=== PATIENT | male | born 1945 | race Caucasian/White ===

== ENCOUNTER → 2016-10-17 | Outpatient (CLI) | payer MEDICARE ==
[~2016-10-17] MED LIST: ACCUPRIL10 MG PO; ACTOS45 MG PO; ASPIR 8181 MG PO; ASPIRIN EC81 MG PO; CATAPRES 0.1MG0.1 MG PO; COREG6.25 MG PO; ELAVIL 50 MG TA50 MG PO; FLOMAX 0.4 MG0.4 MG PO; GABAPENTIN400 MG PO; GLIPIZIDE XL10 MG PO; HYDRALAZINE HCL50 MG PO; HYDROCODON-ACE1 EAC2 PO; IMDUR ER TAB 3030 MG PO; IMDUR ER TAB 6060 MG PO; K-DUR TAB 10 M10 MEQ PO; LASIX40 MG PO; LIPITOR40 MG PO; LOPRESSOR 25 MG25 MG PO; LOPRESSOR 50 MG50 MG PO; LOPRESSOR50 MG PO; MYRBETRIQ50 MG PO; NEURONTIN 300300 MG PO; NITROGLYCERIN0.4 MG SL; NORVASC 5 MG TAB5 MG PO; NORVASC10 MG PO; PROSCAR5 MG PO; REQUIP XL4 MG PO; REQUIP4 MG PO; TYLENOL W/CODEIN1 E1 PO; TYLENOL WITH C1 EACH PO; VALIUM 5 MG TAB5 MG PO; VALIUM5 MG PO
== END ==
LOC: EMI 10-15 08:15
DX: R51 Headache (principal); J34.89 Other specified disorders of nose and nasal sinuses; R93.0 Abnormal findings on diagnostic imaging of skull and head, not elsewhere classified
CPT/HCPCS: 70551

== ENCOUNTER → 2017-01-10 | Outpatient (CLI) | payer MEDICARE | LOC: LAB 08:55 | PROVIDERS: Internal Medicine Nephrology | DX: N18.3 Chronic kidney disease, stage 3 (moderate) (principal); E87.6 Hypokalemia | CPT/HCPCS: 36415; 80053; 82570; 83735; 84156 ==

== ENCOUNTER → 2020-07-31 | Outpatient (CLI) | payer MEDICARE, OTHER ==
[~2020-07-31] MED LIST changes: +BACTRIM DS TAB1 EACH PO; +BUTALB-ACETAMI1 EAC1 PO; +COREG 25MG TAB25 MG PO; +DECADRON4 MG PO; +IBU800 MG PO; +IMODIUM CAP 2 MG2 MG PO; +IPRAT-ALBUT 0.5-3 ML INH; +LANTUS100 UNIT/1 SC; +NIFEDIPINE ER60 M1 PO; +PROVENTIL HFA6.7 GM INH; +SINGULAIR10 MG PO; +VIBRAMYCIN100 MG PO; +ZITHROMAX250 MG PO; +ZOFRAN4 MG PO
== END ==
LOC: EXRD 14:56
DX: M54.5 Low back pain (principal); R10.9 Unspecified abdominal pain; M51.36 Other intervertebral disc degeneration, lumbar region; M47.816 Spondylosis without myelopathy or radiculopathy, lumbar region
CPT/HCPCS: 72100; 74018

== ENCOUNTER → 2020-08-01 | Outpatient (CLI) | payer MEDICARE, OTHER ==
[2020-08-01 10:46] LABS: BUN/CREATININE RATIO 13 (0-10)
== END ==
LOC: LAB 09:46
PROVIDERS: Internal Medicine Nephrology
DX: N18.30 Chronic kidney disease, stage 3 unspecified (principal); E87.6 Hypokalemia
CPT/HCPCS: 36415; 80053; 82570; 83735; 84156

== ENCOUNTER → 2021-01-23 | Outpatient (CLI) | payer MEDICARE, OTHER | LOC: LAB 09:39 | PROVIDERS: Internal Medicine Nephrology | DX: N18.30 Chronic kidney disease, stage 3 unspecified (principal); E87.6 Hypokalemia | CPT/HCPCS: 36415; 80053; 82570; 83735; 84156 ==